=== PATIENT | male | born 1975 | race Caucasian/White ===

== ENCOUNTER 2023-01-27 16:32 | Emergency (ER) | payer SELFPAY ==
[~2023-01-27] VITALS: Ht 167.6 cm; Wt 68.0 kg
[2023-01-27 16:43] VITALS: BP 125/84
--- NOTE | 2023-01-27 16:49 | NUR ---
PT TAKEN TO BED 7
[2023-01-27] MEDS ORDERED: IBUPROFEN 600 MG TAB PO ONE (17:05)
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
--- NOTE | 2023-01-27 17:24 | NUR ---
PT REFUSED TO TAKE MOLTRIN.U
[2023-01-27] MEDS ORDERED: IBUP-2213 PO (18:38)
[2023-01-27] MEDS ORDERED: ACET-10509 PO (18:38)
--- NOTE | 2023-01-27 18:53 | NUR ---
PT CLEARED FOR DISCHARGE BY HILDA SAEZ. PT REFUSING TO LEAVE AND SCREAMING AT STAFF. SECURITY PAGED FOR ASSISTANCE. [facility] CONTACTED, STATED THEY WILL SEND AN OFFICER Addendum: 01/27/23 at 1924 by [email or web address] DISCHARGE INSTRUCTIONS PROVIDED. RX OF TYLENOL EXTRA STRENGTH TAB AND MOTRIN SENT TO [facility]
--- NOTE | 2023-01-27 19:00 | NUR ---
[facility] FOR ASSISTANCE.
== END 2023-01-27 18:53 | disposition home or self-care (01) ==
LOC: MED 16:32
DX: S80.01XA Contusion of right knee, initial encounter (principal); W22.8XXA Striking against or struck by other objects, initial encounter; Y93.89 Activity, other specified; Y92.89 Other specified places as the place of occurrence of the external cause; Y99.8 Other external cause status
CPT/HCPCS: 73562; 73590; 99284